=== PATIENT | male | born 1985 | race Caucasian/White ===

== ENCOUNTER 2022-09-17 16:29 | Emergency (ER) | payer SELFPAY ==
[2022-09-17 16:31] VITALS: BP 126/91; PULSE 81; RESP 16; TEMP 36.7; O2SAT 99; BMI 27.6
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
[2022-09-17] MEDS: Diphth,Pertuss(Acell),Tet Vac 0.5 ML Vial IM (17:25)
[2022-09-17] MEDS: Lidocaine 1% (20 ml mdv) 20 ML Vial INFILT (17:26)
== END 2022-09-17 18:01 | disposition home or self-care (01) ==
PROVIDERS: Emergency Provider Emergency Medicine; Visit Provider Emergency Medicine
DX: S01.81XA Laceration without foreign body of other part of head, initial encounter (principal); Z23 Encounter for immunization; W22.09XA Striking against other stationary object, initial encounter; Y92.812 Truck as the place of occurrence of the external cause
CPT/HCPCS: 12013; 90715; 99282